=== PATIENT | female | born 1985 | race African-American/Black ===

== ENCOUNTER 2025-01-28 10:20 | Emergency (ER) | payer OTHER ==
[~2025-01-28] VITALS: Ht 167.6 cm; Wt 74.0 kg
[2025-01-28] MEDS: IBUPROFEN 600 MG TAB PO ONE (12:35)
[2025-01-28] MEDS: ACETAMINOPHEN 500 MG TAB PO ONE (13:59)
[2025-01-28 15:32] VITALS: BP 149/95; TEMP 98.2
[2025-01-28 15:42] VITALS: O2SAT 100
== END 2025-01-28 15:46 | disposition home or self-care (01) ==
LOC: M ED 10:20 → EDBD 10:20 → M ED 15:46
DX: S70.02XA Contusion of left hip, initial encounter (principal); S30.0XXA Contusion of lower back and pelvis, initial encounter; W00.0XXA Fall on same level due to ice and snow, initial encounter; Y92.9 Unspecified place or not applicable; Y93.9 Activity, unspecified; Y99.1 Military activity; I10 Essential (primary) hypertension